=== PATIENT | male | born 1990 | race Caucasian/White ===

== ENCOUNTER 2023-12-22 09:27 | Emergency (ER) | payer OTHER, SELFPAY ==
[2023-12-22 09:28] VITALS: BP 156/97; PULSE 68; RESP 14; TEMP 36.5; O2SAT 99; BMI 25.8
--- OUTSIDE RECORDS SUMMARY | 2023-12-22 09:57 | XMS RPT_ITS | CCD ---
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 Name Role Phone [facility] Admitting Unavaila amanda SERRA, [facility] Attending Unavaila ble PONCE, [facility] Primary Care Unavaila ble Encounters Encounter Date Encounter Type Care Provider Facility Start: 10-31-2018 End: 10-31-2018 Patient encounter procedure [facility] Summary Purpose Family History No Family History Records Found Advance Directives No Advanced Directives Records Found Additional Source Comments (unrecognized sect ion and content) No Status Records Found INFORMATION SOURCE (unrecogn ized section and content) FOR RECORDS PERTAINING TO PATIENTS WHO ARE OR HAVE BEEN ENROLLED IN A CHEMICAL DEPENDENCY/SUBSTANCEABUSE PROGRAM, SOME INFORMATION MAY BE OMITTED. This clinical summary was aggregated from multiple sources. Caution should be exercised in using it in the provision of clinical care. This summary normalizes information from multiple sources, and as a consequence, information in this document may materially change the coding, format and clinical context of patient data. In addition, data may be omitted in some cases. CLINICAL DECISIONS SHOULD BE BASED ON THE PRIMARY CLINICAL RECORDS. [employer] provides no warranty or guarantee of the accuracy or completeness of information in this document.
[2023-12-22 10:09] LABS: Absolute Lymphocyte Count 1.17 X10^3/uL (0.83-4.51); Absolute Neutrophil Count 3.4 X10^3/uL (2.0-7.7); Basophil# 0.03 X10^3/uL; Basophil% 0.6 % (0-1); Eosinophil# 0.04 X10^3/uL; Eosinophils% 0.8 % (0-5); Hematocrit 45.1 % (40-54); Lymphocyte # 1.17 X10^3/ul (0.83-4.51); Lymphocyte % 22.3 % (19-41); Mean Corp Hgb Conc 33.3 g/dL (32-36); Mean Corpuscular Hgb 29.2 pg (27.0-32.0); Mean Corpuscular Volume 87.7 fL (80-94); Mean Platelet Vol. 8.9 fl (6.2-12.0); Monocyte# 0.63 X10^3/uL; NRBC Flagged by Analyzer 0 % (0-5); Neutrophil # 3.37 X10^3/uL (2.7-7.7); Neutrophil % 64.1 % (47-70); Platelet Count 308 K/mm3 (150-450); RBC Distribution Width CV 12.3 % (11.6-14.6); RBC Distribution Width SD 40.1 fl (35.1-43.9); Red Blood Count 5.14 M/mm3 (4.6-6.2); White Blood Count 5.3 K/mm3 (4.4-11.0)
[2023-12-22 10:13] LABS: Anion Gap 4 (5-15); BUN 16 mg/dL (7-18); BUN/Creat Ratio 14.3 RATIO (10-20); Calcium,Total 9.4 mg/dL (8.5-10.1); Chloride 109 mmol/L (98-107); Creatinine, Serum 1.12 mg/dL (0.70-1.30); EST Glomerular Filtration Rate 81 mL/min (>60); Est Glom Filt Rate - Afr Amer 97 mL/min (>60); Estimated Creatinine Clearance 91.61 ml/min; Glucose 101 mg/dL (74-106); Potassium 4.2 mmol/L (3.5-5.1); Sodium Level 139 mmol/L (136-145)
--- NOTE | 2023-12-22 11:04 | EDS_ITS ---
HPI History of Present Illness Chief Complaint: Dental Detail of Chief Complaint: Awoke this morning with pain and swelling near the angle of the mandible le Informant: patient Onset/Context/Timing Onset: Today Context: Sudden Onset Timing: Continuous Quality: Pain Location: Angle of the mandible on the left side Current Severity: Mild Maximum Severity: Moderate Worsened by: Palpation Associated Symptoms Assocated Symptom - Dental: jaw swelling; Negative for fever, face swelling, cold sensitivity or hot sensitivity Narrative Narrative: Patient is a 33-year-old male who presents with swelling near the angle of the mandible on the left side. He denies fever, chills night sweats. He denies sensitivity to hot or cold liquids. He denies fever, chills night sweats. Denies ear pain, ringing's ears or drainage from his ears. He denies change in voice. He denies pain with opening or closing his mouth. There is no limitation to opening closing his mouth. Patient with viral-like symptoms that started several days ago. Prior similar symptoms: No Recent Illness/Hospitalization: No PFSH PFSH Medical History no medical history no medical history Allergy/AdvReac Type Severity Reaction Status Date / Time No Known Allergies Allergy Verified 12/22/23 09:30 Social History (Updated 12/22/23 @ 11:[address] Jamal Combs MD) Smoking Status: Never smoker alcohol intake: current substance use type: does not use ROS ROS ED Constitutional Constitutional ED: Denies chills, fever(s), subjective, sweats or weight loss Eyes Eyes: Denies blurry vision or change in vision ENT ENT ED: Denies ear pain, rhinorrhea or sore throat Cardiovascular Cardiovascular: Denies chest pain or palpitations Respiratory/Chest Respiratory/Chest: Denies cough or dyspnea Gastrointestinal Gastrointestinal: Denies nausea or vomiting Integumentary Denies abscess or rash Neurologic Neurologic: Denies headache(s) or weakness Allergic/Immunologic Allergic/Immunologic ED: Denies mouth swelling, tongue swelling or urticaria EXAM Physical Exam Const Vital Signs: 12/22/23 09:28 Temperature 97.7 F L Temperature Source Temporal Pulse Rate 68 Respiratory Rate 14 Blood Pressure 156/97 H Blood Pressure Mean 116 Pulse Ox 99 Oxygen Delivery Method Room Air Positive well nourished and well developed General Appearance ED: well developed and NAD; Negative for pallor HEENT Reports TM's clear HEENT Narrative: There is swelling over the left parotid gland. Milking of the parotid gland elicits no drainage from Stensen's duct. Lolita's duct appears normal. There is no submandibular or submental soft tissue swelling or lymphadenopathy. Face and Sinus: sinuses nontender Tympanic Membrane ED: Yes TM's clear Eyes PERRL and EOMs intact bilaterally General Eye ED: Negative for pale conjunctiva or scleral icterus Neck no lymphadenopathy, supple and no JVD General: tenderness; Negative for normal visual inspection, anterior neck swelling or submandibular swelling Lymph Lymphatic: no lymphadenopathy noted Resp normal respiratory effort Cardio regular rate and regular rhythm Extremity normal to inspection Neuro oriented x3, CN's II-XII intact bilaterally and moves all extremities Psych mental status grossly normal Skin no rashes or lesions noted and no wounds General Skin Exam: Negative for pallor MDM MDM MDM Narrative Medical decision making narrative: Differential diagnosis would include dental pathology i.e. apical abscess, mumps, sialolithiasis. Since this is unilateral suspect the latter. White count and BMP were obtained to assess renal function. Also to assess H&H and differential. Lab Data Attestation: I reviewed the patient's lab results. Labs: Laboratory Results - last 24 hr 12/22/23 09:47 WBC 5.3 RBC 5.14 Hgb 15.0 Hct 45.1 MCV 87.7 MCH 29.2 MCHC 33.3 RDW Std Deviation 40.1 RDW Coeff of Stan 12.3 Plt Count 308 MPV 8.9 Immature Gran % (Auto) 0.200 Neut % (Auto) 64.1 Lymph % (Auto) 22.3 [place] % (Auto) 12.0 H Eos % (Auto) 0.8 Baso % (Auto) 0.6 Absolute Neuts (auto) 3.4 Absolute Lymphs (auto) 1.17 Nucleated RBC % 0 Sodium 139 Potassium 4.2 Chloride 109 H Carbon Dioxide 26.0 Anion Gap 4 L BUN 16 Creatinine 1.12 Estim Creat Clear Calc 91.61 Est GFR (MDRD) Af Amer 97 Est GFR (MDRD) Non-Af 81 BUN/Creatinine Ratio 14.3 Glucose 101 Calcium 9.4 Treatment and Re-Evaluation Narrative: Patient was informed that the clinical diagnosis is sialolithiasis. He was referred to ENT. He was instructed to suck on lemon drops and could take anti- inflammatory since he has no contraindication for discomfort. Discharge Plan Triage Chief Complaint: Dental ED Provider: Yannick Combso Dx/Rx/DC Orders Clinical Impression: Parotid sialolithiasis, Elevated blood-pressure reading, without diagnosis of hypertension Instructions: ED Hypertension, To Be Confirmed, ED Salivary Gland Stones Primary Care Provider: Nithin Bills Referrals: Arron Max MD [Med Staff - Active Staff] - 1 Week if not improving Nithin Bills DO [Primary Care Provider] - 1-2 Weeks Disposition Disposition: Home, Self Care
[2023-12-22 11:25] VITALS: BP 136/89; PULSE 70; RESP 16; TEMP 36.6; O2SAT 96
== END 2023-12-22 11:27 | disposition home or self-care (01) ==
PROVIDERS: Emergency Provider Emergency Medicine; PCP Family Medicine; Visit Provider Emergency Medicine
DX: K11.5 Sialolithiasis (principal); R03.0 Elevated blood-pressure reading, without diagnosis of hypertension
CPT/HCPCS: 80048; 85025; 99282

== ENCOUNTER 2024-05-08 15:30 | Outpatient (RCR) | payer OTHER, SELFPAY ==
--- NOTE | 2024-04-17 08:25 | HP.PTEVAL_ITS ---
Patient's Visit Information Visit Information Visit Information: ANTHONY MEYERS is a 33 year old M referred to Physical Therapy by Dr. Nithin Bills DO with a diagnosis of Foot pain. Date of Evaluation: 04/17/24 Physical Therapist: Rob Freeman, BHAVIK, OCS, CSCS Visit Plan Duration: 2 visits Plan: call when DPM orthotics in to fit to shoe and educate on use. Ask about gastroc stretch given today. 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 Feet can hurt afterwards in plantarfascia area and calves hurt. Pain is 5/10 after work B. Days off work are not really an issue. Sleep is fine, sometimes throbbing. Feel Ok in the am after sleeping. Wants orthotics to help absorb better. Wears [employer] one shoes at work. Objective Objective: Walking and transfers normal and I. No tenderness in the feet today. Frontal plane mechanics are slight 4 degree valgus in WB at hindfoot and mild pes planus with pronation B feet. Gastroc soleus very tight B at 0 DF knee straight and knee bent shown gastroc stretch today strength at ankle 4+ all 4 directions without pain today. Balance/Special Test Scores Lower Extremity Functional Score: 79 Goals Goal 1:: fit for and I in use of orthotics to helpo with foot discomfort Goal Time Frame: 2-4 Weeks Rehabilitation Potential Physical Therapy Diagnosis: mild biomechanical postural foot problems leading to discomfort Rehabilitation Potential: Good Anticipated Interventions Patient/Client Instruction: Educate patient on: Condition For the Purpose of:: To decrease pain Therapeutic Exercise to Include: Flexibilty training For the Purpose of:: To decrease pain Orthotics: Shoe insert For the Purpose of:: To decrease pain Text: Thank you for the opportunity to evaluate your patient. For Medicare and Medicare HMO plans, please review the plan of care and approve it. It will need to be FAXED BACK to us at [phone] for Medicare purposes. For Medicare only, by signing this I certify the plan of care. Please let me know if there are questions or concerns regarding this plan of care. Physician Signa ture: Date:
--- NOTE | 2024-05-08 15:42 | HP.PTDCSUM ---
Discharge Summary D/C summary: It has been my pleasure to treat ANTHONY MEYERS referred by Dr. Nithin Bills DO, with the diagnosis of Foot pain for a total of 2 visit(s). Discharge Date: 05/08/24 Please see the following information for a summary of their discharge status. Subjective Subjective: rescheduled from this am. Wroks all day tomorrow and ready to try orthotics Objective Objective/Function: good fit in shoe and understanding of expectations and weaning. Goals Goal 1:: fit for and I in use of orthotics to helpo with foot discomfort Goal Progress: Goal Met Plan Plan: d/c, pt to call if concerns with orthoitcs. D/C Information d/c sentence: If there are questions or concerns regarding this patient's physical therapy, please feel free to call me at [phone]. Thank you for the referral of this patient. Sincerely, Rob Freeman, DPT, OCS, CSCS Balance/Gait/Functional tests Balance/Special Test Scores Lower Extremity Functional Score: 79
== END 2024-05-08 19:00 | disposition home or self-care (01) ==
LOC: PT 15:30
PROVIDERS: PCP Family Medicine; Referring Provider Family Medicine; Visit Provider Family Medicine
DX: M79.671 Pain in right foot (principal); M79.672 Pain in left foot
CPT/HCPCS: 97161; 97763

== ENCOUNTER → 2024-05-27 | Outpatient (CLI) | payer OTHER, SELFPAY ==
--- NOTE | 2024-05-27 07:49 | ECHOD_ITS ---
Reason For Study: PALPITATIONS Procedure This was a 2D Doppler, Color Flow transthoracic echocardiogram. Exam performed in department. Left Ventricle Normal LV size. The estimated ejection fraction is 55 %. No evidence for diastolic dysfunction. No regional wall motion abnormalities noted. Right Ventricle Normal RV size. Normal systolic function. Atria Normal left atrium. Normal right atrium. No doppler evidence for ASD. Mitral Valve There is no mitral valve stenosis. Trivial mitral valve insufficiency. Tricuspid Valve There is no tricuspid stenosis. Unable to estimate RV systolic pressure due to inadequate jet, pulmonary artery pressure probably normal. Aortic Valve Trisinus/trileaflet aortic valve. There is no aortic stenosis. No aortic valve insufficiency. Pulmonic Valve There is no pulmonic valvular stenosis. Trivial pulmonic valve insufficiency. Great Vessels Normal aortic root. Pericardium/Pleural No pericardial effusion. MMode/2D Measurements & Calculations LVIDd: 4.0 cm IVSd: 0.99 cm LVOT diam: 2.0 cm LVIDs: 2.2 cm LVPWd: 0.79 cm LVOT area: 3.1 cm2 RVDd: 3.7 cm FS: 44.8 % Ao root diam: 3.1 cm LAV(MOD-bp): 26.0 ml LVAd ap4: 26.3 cm2 LAV(MOD-bp) Indexed: 13.6 ml/m2 LVLd ap4: 7.5 cm LAV(MOD-sp2): 23.9 ml EDV(MOD-sp4): 74.5 ml LAV(MOD-sp4): 25.8 ml EDV(sp4-el): 78.0 ml LVAs ap4: 13.0 cm2 LVLs ap4: 5.8 cm ESV(MOD-sp4): 24.4 ml ESV(sp4-el): 24.9 ml EF(MOD-sp4): 67.2 % EF(sp4-el): 68.0 % LVAd ap2: 28.3 cm2 SV(MOD-sp4): 50.1 ml SV(MOD-sp2): 46.8 ml LVLd ap2: 8.2 cm EDV(MOD-sp2): 81.3 ml EDV(sp2-el): 82.9 ml LVAs ap2: 16.2 cm2 LVLs ap2: 6.5 cm ESV(MOD-sp2): 34.4 ml ESV(sp2-el): 34.3 ml EF(MOD-sp2): 57.6 % SV(sp4-el): 53.0 ml LA dimension(2D): 3.4 cm LA A4 area: 12.0 cm2 RA A4 area: 8.9 cm2 TAPSE: 1.7 cm Time Measurements MV dec time: 0.17 sec Doppler Measurements & Calculations MV E max benjamin: 91.7 cm/sec Lat Peak E' Benjamin: 14.8 cm/sec Med Peak E' Benjamin: 8.0 cm/sec MV A max benjamin: 66.1 cm/sec E/E' lat: 6.2 E/E' med: 11.4 MV E/A: 1.4 Ao V2 max: 126.8 cm/sec LV V1 max: 101.4 cm/sec MV dec slope: 537.5 cm/sec2 Ao max P.4 mmHg LV V1 max P.1 mmHg Ao V2 mean: 85.0 cm/sec LV V1 mean P.1 mmHg Ao mean P.3 mmHg LV V1 mean: 67.2 cm/sec Ao V2 VTI: 26.2 cm LV V1 VTI: 19.6 cm AV (velocity ratio): 0.75 DAISY(I,D): 2.3 cm2 DAISY(V,D): 2.5 cm2 SV(LVOT): 61.1 ml PA V2 max: 107.6 cm/sec PI end-d benjamin: 79.8 cm/sec PA max PG (full): 2.1 mmHg ECHO/Echo Complete Interpretation Summary The estimated ejection fraction is 55 %. No evidence for diastolic dysfunction. Trivial mitral valve insufficiency. Ordering Physician: Nithin Bills Referring Physician: Nithin Bills Performed By: Susan Clemente, JOSE M
== END | disposition home or self-care (01) ==
LOC: CVS 07:48
PROVIDERS: PCP Family Medicine; Referring Provider Family Medicine; Visit Provider Family Medicine
DX: R00.2 Palpitations (principal); Z82.49 Family history of ischemic heart disease and other diseases of the circulatory system
CPT/HCPCS: 93306